=== PATIENT | female | born 1990 | race Caucasian/White ===

== ENCOUNTER → 2018-07-23 21:23 | Outpatient (CLI) | payer SELFPAY ==
[2018-07-23 21:35] LABS: Absolute Lymphocyte Count 2.72 X10^3/ul (0.83-4.51); Absolute Neutrophil Count 7.2 X10^3/uL (2.0-7.7); Basophil# 0.02 X10^3/uL; Basophil% 0.2 % (0-1); Eosinophil# 0.06 X10^3/uL; Eosinophils% 0.6 % (0-5); Hematocrit 40.5 % (37-47); Hemoglobin 13.2 g/dl (12.0-15.0); Lymphocyte # 2.72 X10^3/ul (4.0); Lymphocyte % 25.3 % (19-41); Mean Corp Hgb Conc 32.6 g/gl (32-36); Mean Corpuscular Hgb 28.8 pg (27.0-32.0); Mean Corpuscular Volume 88.4 fL (81-99); Mean Platelet Vol. 9.1 fl (6.2-12.0); Monocyte# 0.78 X10^3/uL; Monocyte% 7.2 % (0-10); Neutrophil # 7.18 X10^3/uL (2.7-7.7); Neutrophil % 66.6 % (47-70); Platelet Count 308 K/mm3 (150-450); RBC Distribution Width CV 13.5 % (11.6-14.6); RBC Distribution Width SD 43.4 fl (35.1-43.9); Red Blood Count 4.58 M/mm3 (4.2-5.4); White Blood Count 10.8 K/mm3 (4.4-11.0)
[2018-07-23 22:00] LABS: Thyroid Stim Hormone (TSH) 0.54 uIU/mL (0.358-3.74)
[2018-07-23 22:04] LABS: POSITIVE COUNT NO; POSITIVE DIFFERENTIAL NO; POSITIVE MORPHOLOGY NO
== END ==
PROVIDERS: Visit Provider Nurse Practitioner
DX: F41.0 Panic disorder [episodic paroxysmal anxiety] (principal); R63.5 Abnormal weight gain
CPT/HCPCS: 84439; 84443; 84481; 85025